=== PATIENT | female | born 1985 | race Native Hawaiian/Other Pacific Islander ===

== ENCOUNTER 2022-09-21 03:45 | Emergency (ER) | payer OTHER ==
[~2022-09-21] VITALS: Ht 157.5 cm; Wt 60.8 kg
[2022-09-21 05:27] LABS: PLATELET COUNT 281 K/uL (152-353)
[2022-09-21 05:29] LABS: POTASSIUM 3.4 mmol/L (3.6-5.2)
[2022-09-21 05:59] VITALS: BP 124/75; TEMP 98.4
== END 2022-09-21 06:00 | disposition home or self-care (01) ==
LOC: ED 03:45
PROVIDERS: Family Medicine
DX: G43.909 Migraine, unspecified, not intractable, without status migrainosus (principal); H54.62 Unqualified visual loss, left eye, normal vision right eye; M54.2 Cervicalgia; F41.8 Other specified anxiety disorders
CPT/HCPCS: 36415; 80053; 80307; 81002; 81025; 85027; 96360; 96374; 96375; 99284; J1100; J1200; J1885; J2765

== ENCOUNTER 2022-10-11 13:18 | Outpatient (CLI) | payer OTHER | END 2022-10-11 20:35 | disposition home or self-care (01) | LOC: MRI 13:18 | PROVIDERS: ATTEND Orthopaedic Surgery | DX: M54.2 Cervicalgia (principal); M54.12 Radiculopathy, cervical region ==

== ENCOUNTER 2022-12-24 13:24 | Outpatient (CLI) | payer OTHER | END 2022-12-24 19:43 | disposition home or self-care (01) | LOC: MRI 13:24 | PROVIDERS: ATTEND Psychiatry & Neurology Neurology | DX: R20.2 Paresthesia of skin (principal) | CPT/HCPCS: A9576 ==